=== PATIENT | female | born 1950 ===

== ENCOUNTER 2017-07-14 07:14 | Day surgery (SDC) | payer OTHER ==
[2017-07-14] MEDS ORDERED: Propofol 10 mg/ml Inj (20 ML) ONE (09:29)
--- NOTE | 2017-07-14 09:33 | CP.SDSHP ---
Same Day Surgery H & P - History Proposed Procedure: EGD Pre-Op Diagnosis: SEE NOTES - Previous Medical/Surgical History Endocrine/Metabolic: Diabetes Neuro: Backaches, Other Misc: Other Pain: 4.Moderate Pain - Allergies Allergies: Allergies No Known Allergies Allergy (Verified 06/06/14 09:09) - Physical Exam General Appearance: N Vital Signs: Vital Signs 07/14/17 08:10 Temperature 97.7 F Pulse Rate 80 Respiratory 20 Rate Blood Pressure 146/68 O2 Sat by Pulse 98 Oximetry Mental Status: Alert & Oriented x3 Neuro: Other Heart: Other Lungs: WNL GI: Other - {Optional Preform as Required} Breast: WNL Rectal: Other Integument: WNL : WNL Ortho: Other ENT: WNL - Impression Pt. Evaluated Today:Candidate for Anesthesia & Procedure: Yes - Date & Time Time: 09:34 Short Stay Discharge - Short Stay Discharge Admitting Diagnosis/Reason for Visit: DYSPEPSIA Disposition: HOME/ ROUTINE
[2017-07-14] MEDS ORDERED: Belladonna-Phenobarbital PO STA (09:45)
[2017-07-14] MEDS ORDERED: Lactated Ringer's 500 ML IV SCH (09:45)
[2017-07-14 09:52] VITALS: TEMP 98.4; O2SAT 100
[2017-07-14 10:46] VITALS: BP 132/72; PULSE 90; RESP 16
== END 2017-07-14 10:45 | disposition home or self-care (01) ==
LOC: C.ENDO 07:14
PROVIDERS: ATTEND Specialist
DX: K29.00 Acute gastritis without bleeding (principal); M06.9 Rheumatoid arthritis, unspecified; E11.9 Type 2 diabetes mellitus without complications; I10 Essential (primary) hypertension; F32.9 Major depressive disorder, single episode, unspecified; F41.9 Anxiety disorder, unspecified; K44.9 Diaphragmatic hernia without obstruction or gangrene; M54.9 Dorsalgia, unspecified
CPT/HCPCS: 43239; 82948; 88305; 88342; J2704; J7120